=== PATIENT | female | born 1980 | race Caucasian/White ===

== ENCOUNTER → 2023-08-28 09:49 | Outpatient (REF) | payer BC, SELFPAY ==
[2023-08-28 11:26] LABS: Blood Urea Nitrogen 15 mg/dl (7-17); Calcium 9.6 mg/dl (8.4-10.2); Carbon Dioxide 29 mmol/L (22-30); Chloride 101 mmol/L (98-107); Glucose 93 mg/dl (70-99); Potassium 4.7 mmol/L (3.5-5.1); Sodium 137 mmol/L (135-145); eGFR > 60.00
[2023-08-28 11:41] LABS: Free T3 3.41 pg/ml (2.77-5.27)
[2023-08-29 11:04] LABS: Glycohemoglobin (HgbA1c) 5.1 % (4.0-5.6)
[2023-08-29 11:57] LABS: Thyroglobulin Antibodies <0.9 IU/mL (0.0-4.0); Thyroid Peroxidase Ab (TPO) 0.3 IU/mL (0.0-9.0)
[2023-08-29 17:33] LABS: EBV-NA IgG <3.0 U/mL (0.0-21.9); EBV-VCA IgM Antibodies <10.0 U/mL (0.0-43.9)
== END ==
LOC: REG 09:49
PROVIDERS: ATTENDING PHYSICIAN Nurse Practitioner Family
DX: R94.6 Abnormal results of thyroid function studies (principal); R53.81 Other malaise; R53.83 Other fatigue; E16.2 Hypoglycemia, unspecified
CPT/HCPCS: 36415; 80048; 83036; 84481; 86376; 86663; 86664; 86665; 86800

== ENCOUNTER → 2024-03-27 16:42 | Outpatient (REF) | payer BC, SELFPAY | LOC: WDC 16:42 | PROVIDERS: ATTENDING PHYSICIAN Nurse Practitioner Family; FAMILY PHYSICIAN Nurse Practitioner Family | DX: Z12.31 Encounter for screening mammogram for malignant neoplasm of breast (principal) | CPT/HCPCS: 77063; 77067 ==

== ENCOUNTER → 2024-07-01 10:20 | Outpatient (REF) | payer BC, SELFPAY ==
[2024-07-01 11:24] LABS: % Basophils 0.4 % (0-2); % Eosinophils 2.2 % (0-6); % Immature Granulocytes 0.3 % (0-0.5); % Lymphocytes 28.2 % (20.5-51.1); % Monocytes 8.2 % (1.7-9.3); % Neutrophils 60.7 % (42.2-75.2); Absolute Eosinophils 0.2 10^3/uL (0-0.7); Absolute Lymphocytes 1.9 10^3/uL (1.2-3.4); Absolute Monocytes 0.6 10^3/uL (0.1-0.6); Absolute Neutrophils 4.2 10^3/uL (1.4-6.5); Hemoglobin 14.2 g/dL (12.0-16.0); Mean Corp Hgb Conc. 34.6 g/dL (33.0-37.0); Mean Corpuscular Hgb 30.5 pg (27.0-31.0); Mean Corpuscular Volume 88.2 fL (81.0-99.0); Mean Platelet Volume 9.2 fL (7.4-10.4); Nucleated Red Blood Cells % 0 %; Platelet Count 291 10^3/uL (130-400); Red Blood Cell Count 4.65 10^6/uL (4.20-5.40); Red Cell Dist. Width 12.3 % (11.5-14.5); White Blood Cell Count 6.8 10^3/uL (4.8-10.8)
[2024-07-01 12:03] LABS: Erythrocyte Sed Rate 11 mm/hour (0-20)
[2024-07-03 00:15] LABS: EBV-EA (D) Ab IgG 90.2 U/mL (0.0-10.9); EBV-NA IgG <3.0 U/mL (0.0-21.9); EBV-VCA IgM Antibodies <10.0 U/mL (0.0-43.9)
[2024-07-03 08:36] LABS: Rheumatoid Agglutinin Less Than 10 IU (<10 IU)
[2024-07-03 12:12] LABS: Lyme Antibody Screen, EIA Negative (Negative)
[2024-07-03 20:15] LABS: ANA, IgG Reflex to HEp-2 None Detected (None Detected)
== END ==
LOC: REG 10:20
PROVIDERS: ATTENDING PHYSICIAN Nurse Practitioner Family
DX: M25.50 Pain in unspecified joint (principal); M79.10 Myalgia, unspecified site; R53.83 Other fatigue
CPT/HCPCS: 36415; 85025; 85652; 86038; 86430; 86618; 86663; 86664; 86665

== ENCOUNTER 2024-11-18 06:25 | Day surgery (SDC) | payer BC, SELFPAY | END 2024-11-18 15:15 | disposition home or self-care (01) | LOC: GI 06:25 | PROVIDERS: ATTENDING PHYSICIAN Internal Medicine | DX: Z12.11 Encounter for screening for malignant neoplasm of colon (principal); K64.8 Other hemorrhoids; K92.1 Melena; K44.9 Diaphragmatic hernia without obstruction or gangrene; K22.89 Other specified disease of esophagus; R12 Heartburn; K20.90 Esophagitis, unspecified without bleeding; K31.819 Angiodysplasia of stomach and duodenum without bleeding; K25.9 Gastric ulcer, unspecified as acute or chronic, without hemorrhage or perforation; D12.2 Benign neoplasm of ascending colon; D12.3 Benign neoplasm of transverse colon; K62.1 Rectal polyp | CPT/HCPCS: 43255; 45385; 45380; 43239; 88305; 88342 ==